=== PATIENT | female | born 1995 | race Caucasian/White ===

== ENCOUNTER → 2021-07-14 11:19 | Outpatient (CLI) | payer MEDICAID, SELFPAY | PROVIDERS: Visit Provider Obstetrics & Gynecology | DX: Z34.82 Encounter for supervision of other normal pregnancy, second trimester (principal) | CPT/HCPCS: 36415 ==

== ENCOUNTER 2021-07-22 23:40 | Emergency (ER) | payer MEDICAID, SELFPAY ==
[2021-07-22 23:40] VITALS: BP 109/67; PULSE 75; RESP 16; TEMP 36.7; O2SAT 97; BMI 19.8
--- NOTE | 2021-07-22 23:52 | EDS_ITS ---
HPI History of Present Illness Chief Complaint: Foreign Body Informant: patient Narrative Narrative: 26-year-old female presented to the emergency department out of concerns for a pill stuck in her throat. Patient states that she was attempting to take some vitamin B6 tablets. She states she typically will bite these into the threes and swallow because they are so large. She states that 1 of these feels like it is stuck in her throat just above her suprasternal notch. She has been able to swallow. Denies any voice changes. She states that she is and began to get quite anxious about going to sleep tonight pain afraid that she might choke. PFSH PFSH Home Medications PNV cmb#95-ferrous fumarate-FA [ Vitamin Tablet] 1 ea PO DAILY 05/03/16 [History Last Taken 05/02/16 21:00 1 tab] naproxen 250 - 500 mg PO Q8H PRN PRN #30 tablet 05/05/16 [Rx Last Taken Unknown] Allergy/AdvReac Type Severity Reaction Status Date / Time No Known Allergies Allergy Verified 07/22/21 23:43 Social History (Updated 07/22/21 @ 23:[address] Jared Fuentes, DO) current gender identity: female Smoking Status: Former smoker ROS ROS ED Constitutional Constitutional ED: Denies chills or weight loss Eyes Eyes: Denies change in vision or diplopia ENT ENT ED: Reports sore throat; Denies ear pain or rhinorrhea Cardiovascular Cardiovascular: Denies chest pain, orthopnea, palpitations or racing heartbeat Respiratory/Chest Respiratory/Chest: Denies cough, dyspnea or orthopnea Gastrointestinal Gastrointestinal: Denies abdominal pain, diarrhea, nausea or vomiting Genitourinary Genitourinary ED: Denies dysuria, hematuria or urinary frequency Musculoskeletal Musculoskeletal: Denies arthralgias or myalgias Integumentary Denies abscess or rash Neurologic Neurologic: Denies headache(s) or weakness Psychiatric Psychiatric: Denies anxiety, depression, suicidal ideation or suicidal thoughts Endocrine Endocrinology: Denies polydipsia, polyphagia or polyuria Allergic/Immunologic Allergic/Immunologic ED: Denies mouth swelling, tongue swelling or urticaria EXAM Physical Exam Const Vital Signs: 07/22/21 23:40 Temperature 98.1 F Temperature Source Temporal Pulse Rate 75 Respiratory Rate 16 Blood Pressure 109/67 Blood Pressure Mean 81 Pulse Ox 97 Oxygen Delivery Method Room Air Positive well nourished and well developed General Appearance ED: well developed HEENT Reports normocephalic, head/scalp atraumatic, TM's clear and moist mucous membranes HEENT Narrative: Normal oral pharyngeal exam. No drooling. Able to tolerate wa ter. Tympanic Membrane ED: Yes TM's clear Eyes PERRL and EOMs intact bilaterally Neck no lymphadenopathy, supple and no JVD Resp normal respiratory effort and clear to auscultation bilaterally Cardio regular rate, regular rhythm and no murmurs GI normal to inspection, nondistended, normoactive bowel sounds and non-tender Palpation: soft Back/Spine no CVA tenderness and normal ROM Extremity normal to inspection General Extremety ED: Negative for edema General Extremity: Negative for edema Neuro oriented x3 and CN's II-XII intact bilaterally Sensorium / Orientation: alert Motor Exam: strength 5/5 throughout Psych mental status grossly normal Mood & Affect: Negative for depressed or tearful Skin no rashes or lesions noted and no wounds MDM MDM MDM Narrative Medical decision making narrative: Patient received a GI cocktail. Most likely the patient has a abrasion from the pill fragments. If there is a pill stuck it should dissolve. Patient I think is safe for discharge. Follow-up with ENT if not improving return if worsening Discharge Plan Triage Chief Complaint: Foreign Body ED Provider: Jared Fuentes Dx/Rx/DC Orders Clinical Impression: Abrasion of throat Instructions: ED Pharyngeal Abrasion Prescriptions: No Action PNV cmb#95-ferrous fumarate-FA [] 1 EACH tablet 1 ea PO DAILY RF: 0 naproxen 250 MG tablet 250 - 500 mg PO Q8H PRN PRN (Reason: Mild Pain (1-310)) Qty: 30 RF: 0 Primary Care Provider: Care Physician,No Primary Referrals: Max Chacko MD [STAFF PHYSICIAN] - As Needed (if not improving ) Care Physician,No Primary [Primary Care Provider] - Disposition Disposition: Home, Self Care
[2021-07-23] MEDS: Mag Hydrox/Al Hydrox/Simeth 30 ML UDC PO (00:06)
== END 2021-07-23 00:12 | disposition home or self-care (01) ==
LOC: ED 07-23
PROVIDERS: Emergency Provider Emergency Medicine
DX: O9A.219 Injury, poisoning and certain other consequences of external causes complicating pregnancy, unspecified trimester (principal); S10.11XA Abrasion of throat, initial encounter; T17.298A Other foreign object in pharynx causing other injury, initial encounter; Z87.891 Personal history of nicotine dependence; Z3A.00 Weeks of gestation of pregnancy not specified
CPT/HCPCS: 99283

== ENCOUNTER 2021-09-29 09:37 | Outpatient (CLI) | payer MEDICAID, SELFPAY ==
[2021-09-29 10:00] LABS: Hematocrit 34.5 % (37-47); Hemoglobin 11.5 g/dL (12.0-15.0); Mean Corp Hgb Conc 33.3 g/dL (32-36); Mean Corpuscular Volume 90.1 fL (81-99); Mean Platelet Vol. 10.3 fl (6.2-12.0); Platelet Count 244 K/mm3 (150-450); RBC Distribution Width CV 12.7 % (11.6-14.6); RBC Distribution Width SD 41.8 fl (35.1-43.9); Red Blood Count 3.83 M/mm3 (4.2-5.4); White Blood Count 14.2 K/mm3 (4.4-11.0)
[2021-09-29 10:29] LABS: Glucose Challenge Gest 1H 50g 82 mg/dL (70-140)
== END 2021-09-29 23:59 | disposition home or self-care (01) ==
LOC: WOBLAB 09:39
PROVIDERS: Visit Provider Obstetrics & Gynecology
DX: Z34.82 Encounter for supervision of other normal pregnancy, second trimester (principal)
CPT/HCPCS: 36415; 82950; 85027

== ENCOUNTER → 2021-12-03 | Outpatient (CLI) | payer OTHER, MEDICAID, SELFPAY | END | disposition home or self-care (01) | LOC: LABSPEC 16:07 | PROVIDERS: Visit Provider Obstetrics & Gynecology | DX: Z36.85 Encounter for antenatal screening for Streptococcus B (principal) | CPT/HCPCS: 87081 ==

== ENCOUNTER 2021-12-08 08:16 | Outpatient (CLI) | payer OTHER, MEDICAID, SELFPAY ==
[2021-12-08 08:24] VITALS: BP 113/75; PULSE 54; TEMP 36.6; O2SAT 99
[2021-12-08 08:25] VITALS: PULSE 54; O2SAT 99
[2021-12-08 08:29] VITALS: BMI 25.0
--- NOTE | 2021-12-09 08:20 | OB.TRI.NOTE ---
HPI - General HPI Narrative REJI IRWIN, is a 26 F who presents at 37 weeks 2 days gestation with some contractions. Patient denies any leaking of fluid. PFSH PFSH Home Medications PNV cmb#95-ferrous fumarate-FA [ Vitamin Tablet] 1 ea PO DAILY 05/03/16 [History Last Taken 05/02/16 21:00 1 tab] Unisom (diphenhydramine) 50 mg PO/SL DAILY 12/08/21 [History Last Taken Unknown] docusate sodium [Stool Softener] 100 mg PO DAILY 12/08/21 [History Last Taken Unknown] Allergy/AdvReac Type Severity Reaction Status Date / Time No Known Allergies Allergy Verified 12/08/21 08:31 Social History (Updated 07/22/21 @ 23:[address] Jared Fuentes, DO) Smoking Status: Former smoker History Elective abortions Hx Para 0 Spontaneous abortions Hx # Term Pregnancies Ectopic pregnancies Hx # Pregnancies Multiple births # of living children NST FHR Rate Baby A NST Reactive:: Yes FHR Category:: Category I Assessment & Plan (1) False labor, antepartum: PLAN: 37-week 2-day gestation with some contractions. After monitoring for 1 to 2 hours no cervical change was noted. Patient is comfortable resting in bed. Reactive nonstress test. Discharge to home with routine labor instructions given.
== END 2021-12-08 10:08 | disposition home or self-care (01) ==
LOC: WPOUT 08:22 → WP 08:23
PROVIDERS: Referring Provider Obstetrics & Gynecology; Visit Provider Obstetrics & Gynecology
DX: O47.03 False labor before 37 completed weeks of gestation, third trimester (principal); Z87.891 Personal history of nicotine dependence; Z3A.37 37 weeks gestation of pregnancy
CPT/HCPCS: 59050; 99218; G0378

== ENCOUNTER 2021-12-12 11:25 | Outpatient (CLI) | payer MEDICAID, SELFPAY ==
[2021-12-12 11:44] VITALS: TEMP 37.2
[2021-12-12 11:45] VITALS: BP 102/56; PULSE 67; TEMP 37.2
[2021-12-12 11:50] VITALS: PULSE 97; O2SAT 98
[2021-12-12 11:52] VITALS: BMI 25.2
--- NOTE | 2021-12-12 20:08 | OB.TRI.HP_ITS ---
HPI - General HPI Narrative REJI IRWIN, is a 26 F who presents at 37+ weeks gestation with some contractions. Denies leaking of fluid. PFSH PFSH Home Medications PNV cmb#95-ferrous fumarate-FA [ Vitamin Tablet] 1 ea PO DAILY 05/03/16 [History Last Taken 12/11/21 20:00] Unisom (diphenhydramine) 50 mg PO/SL DAILY 12/08/21 [History Last Taken 12/11/21 20:00] docusate sodium [Stool Softener] 100 mg PO DAILY 12/08/21 [History Last Taken 0 12/11/21 20:00] Allergy/AdvReac Type Severity Reaction Status Date / Time No Known Allergies Allergy Verified 12/08/21 08:31 Social History (Updated 07/22/21 @ 23:[address] Jared Fuentes, DO) Smoking Status: Former smoker History Elective abortions Hx Para 0 Spontaneous abortions Hx # Term Pregnancies Ectopic pregnancies Hx # Pregnancies Multiple births # of living children NST FHR Rate Baby B Decelerations:: Prolonged NST Reactive:: Yes FHR Category:: Category I Assessment & Plan (1) False labor, antepartum: PLAN: 37+ week intrauterine with false labor. Reactive nonstress test. No change of cervix after monitoring for 1 to 2 hours. No evidence of rupture membranes. Will discharge to home with routine instructions.
== END 2021-12-12 14:01 | disposition home or self-care (01) ==
LOC: WPOUT 11:30 → WP 11:30
PROVIDERS: Referring Provider Obstetrics & Gynecology; Visit Provider Obstetrics & Gynecology
DX: O47.03 False labor before 37 completed weeks of gestation, third trimester (principal); Z87.891 Personal history of nicotine dependence; Z3A.37 37 weeks gestation of pregnancy
CPT/HCPCS: G0378 ×2; 59050 ×2; 59025; 99218

== ENCOUNTER 2021-12-13 22:56 | Inpatient (IN) | payer OTHER, MEDICAID, SELFPAY ==
[2021-12-13] VITALS (10 sets, daily range): BP systolic 121–132; BP diastolic 63–81; PULSE 57–83; TEMP 36.4; O2SAT 83–100; BMI 24.8
[2021-12-13] MEDS: Lactated Ringers 1,000 ML 200 ML IV (23:15)
[2021-12-13] MEDS: Lactated Ringers 500 ML 999 ML IV (23:15)
[2021-12-13] MEDS: Ondansetron 4 MG/2 ML Vial IV (23:24)
[2021-12-13 23:36] LABS: Absolute Lymphocyte Count 3.49 X10^3/uL (0.83-4.51); Absolute Neutrophil Count 9.9 X10^3/uL (2.0-7.7); Basophil# 0.07 X10^3/uL; Basophil% 0.5 % (0-1); Eosinophils% 0.7 % (0-5); Hematocrit 34.4 % (37-47); Hemoglobin 11.2 g/dL (12.0-15.0); Lymphocyte # 3.49 X10^3/ul (0.83-4.51); Lymphocyte % 23.1 % (19-41); Mean Corp Hgb Conc 32.6 g/dL (32-36); Mean Corpuscular Hgb 27.8 pg (27.0-32.0); Mean Corpuscular Volume 85.4 fL (81-99); Mean Platelet Vol. 10.9 fl (6.2-12.0); Monocyte# 1.19 X10^3/uL; Monocyte% 7.9 % (0-10); NRBC Flagged by Analyzer 0.3 % (0-5); Neutrophil # 9.91 X10^3/uL (2.7-7.7); Neutrophil % 65.4 % (47-70); Platelet Count 217 K/mm3 (150-450); RBC Distribution Width CV 13.2 % (11.6-14.6); RBC Distribution Width SD 41.1 fl (35.1-43.9); Red Blood Count 4.03 M/mm3 (4.2-5.4); White Blood Count 15.1 K/mm3 (4.4-11.0)
[2021-12-13 23:44] LABS: ROM Internal Control Test YES-OK TO RESULT pt. (Internal QC)
[2021-12-13 23:45] LABS: ROM Patient Test Negative (Negative)
[2021-12-14] VITALS (60 sets, daily range): BP systolic 89–121; BP diastolic 47–67; PULSE 48–244; RESP 16; TEMP 36.2–37; O2SAT 82–100
[2021-12-14] MEDS: fentaNYL-bupivacaine (epidural) 100 ML BAG EPIDURAL ×2 (00:05→04:16)
[2021-12-14] MEDS: Lactated Ringers 500 ML 999 ML IV (00:17)
[2021-12-14 00:40] LABS: Amphetamine Urine VISTA NEGATIVE (<1000 ng/mL); Barbiturate Urine VISTA NEGATIVE (< 200 ng/mL); Benzodiazepine Urine VISTA NEGATIVE (< 200 ng/mL); Cocaine Urine VISTA NEGATIVE (< 300 ng/mL); Ecstacy Urine VISTA NEGATIVE (< 500 ng/mL); Methadone Urine VISTA NEGATIVE (< 300 ng/mL); PCP Urine VISTA NEGATIVE (< 25 ng/mL); THC Urine VISTA POSITIVE (< 50 ng/mL); Vista UDS pH Range 6
[2021-12-14] MEDS: Lactated Ringers 1,000 ML 200 ML IV (04:16)
[2021-12-14] MEDS: Oxytocin 30 units/NS 500 ml 30 UNITS/500 ML IV.SOLN IV (05:39)
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
[2021-12-14] MEDS: Acetaminophen 500 MG Tablet PO (07:52)
--- NOTE | 2021-12-14 08:58 | PCM.PN.OB ---
Subjective Subjective No complaints. COmfortable with epidural. Objective Data Objective Data Vital Signs: Vital Signs Temp Pulse BP Pulse Ox 98.0 F 244 H 108/58 L 83 12/14/21 08:25 12/14/21 08:27 12/14/21 08:25 12/14/21 08:27 Weight: 63.73 kg Body Mass Index (BMI) 24.8 Intake & Output: Intake and Output for Last 24 Hours 12/12/21 12/13/21 12/14/21 23:59 23:59 23:59 Intake Total Balance Lab / Micro Data Result Diagrams: 12/13/21 23:10 Labs: Laboratory Results - last 24 hr 12/13/21 23:00: Vag Amniotic Fld Detect Negative 12/13/21 23:10: WBC 15.1 H, RBC 4.03 L, Hgb 11.2 L, Hct 34.4 L, MCV 85.4, MCH 27.8, MCHC 32.6, RDW Std Deviation 41.1, RDW Coeff of [place] 13.2, Plt Count 217, MPV 10.9, Immature Gran % (Auto) 2.400 H, Neut % (Auto) 65.4, Lymph % (Auto) 23.1, [place] % (Auto) 7.9, Eos % (Auto) 0.7, Baso % (Auto) 0.5, Absolute Neuts (auto) 9.9 H, Absolute Lymphs (auto) 3.49, Nucleated RBC % 0.3 12/13/21 23:10: Blood Type O POSITIVE, Antibody Screen NEGATIVE 12/14/21 00:15: Urine Opiates Screen NEGATIVE, Urine Methadone Screen NEGATIVE, Ur Barbiturates Screen NEGATIVE, Ur Phencyclidine Scrn NEGATIVE, Ur Amphetamines Screen NEGATIVE, MDMA (Ecstasy) Screen NEGATIVE, U Benzodiazepines Scrn NEGATIVE, Urine Cocaine Screen NEGATIVE, U Cannabinoids Screen POSITIVE H, Ur Drug Screen Comment Micro: Microbiology 12/13/21 23:25 Nasal Secretion SARS-CoV-2 Antigen (Rapid) - Final Physical Exam Narrative GEN - NAD, AAO x 3 FHR 130, moderate variability, + accelerations including with scalp stimulation, no decelerations TOCO 10/14 SVE FD/+2 station, OA, BBOW Assessment & Plan (1) 38 weeks gestation of : PLAN: Anticipate Cat I FHR
[2021-12-14] MEDS: Oxytocin 30 units/NS 500 ml 30 UNITS/500 ML IV.SOLN 334 UNITS IV (09:38)
--- NOTE | 2021-12-14 09:48 | EX.PCM.OBRPT ---
Assessment & Plan (1) 38 weeks gestation of : (2) (spontaneous vaginal delivery): Maternal Data Information KARIN Calculator Estimated Delivery Date Method Current WG Current Estimate 12/27/21 Manual 38w 1d Vaginal Delivery Maternal Presentation Maternal Presentation: Active Labor Maternal Presentation: Pitocin augmentation Operative Information Date of Procedure: 12/14/21 Pre-Operative Diagnosis: 1. 38 weeks 1 day gestation 2. Labor Post-Operative Diagnosis: 1. 38 weeks 1 day gestation 2. Labor Surgery / Procedure Performed: Spontaneous Vaginal Delivery Type of Anesthesia: Epidural Estimated Blood Loss: 200 ml Time of Delivery: 09:33 Findings Description of Procedure: Patient was fully dilated and +4 station on my arrival. She pushed to deliver a female infant in OA. The was placed on maternal abdomen and further attended by nursery personnel. The cord was doubly clamped and cut at approximately 3 minutes of life. Cord blood was obtained the placenta delivered spontaneously and appeared intact on inspection. The fundus was firm. A first-degree perineal laceration was repaired using 3-0 Vicryl repeat with good hemostasis. Sponge counts were correct x2. Presentation: Vertex Amniotic Membrane Rupture Type: Artificial Amniotic Fluid Description: Clear Placental Delivery Description: Spontaneous Placenta Disposition: [facility] Cord Vessel Description: 3 Vessels Cord Entanglement: None A Gender: Female (1 minute): 8 (5 minute): 9 Delayed Cord Clamping: Yes Post Vaginal Delivery Medications Given After Delivery: IV Pitocin Episiotomy Description: None Laceration: Midline and 1st degree Complication Complications: None
[2021-12-14] MEDS: 0.9% Saline Lock 10 ML Syringe IV (12:25)
[2021-12-14] MEDS: Ibuprofen 600 MG Tablet PO ×2 (12:26→20:31)
[2021-12-14] MEDS: Senna/Docusate Sodium 1 Tablet PO (12:26)
[2021-12-14] MEDS: Benzocaine/Lanolin/Aloe Vera 1 SPRAY EACH TOPICAL (15:54)
[2021-12-14] MEDS: Acetaminophen 500 MG Tablet 1000 MG PO (21:50)
[2021-12-15 00:40] VITALS: BP 108/72; PULSE 80; RESP 16; TEMP 36.6; O2SAT 98
[2021-12-15] MEDS: Acetaminophen 500 MG Tablet 1000 MG PO ×2 (04:43→11:05)
[2021-12-15] MEDS: Ibuprofen 600 MG Tablet PO (04:43)
[2021-12-15 04:45] VITALS: BP 116/68; PULSE 68; RESP 16; TEMP 36.9; O2SAT 97
[2021-12-15 08:27] VITALS: BP 113/58; PULSE 53; RESP 14; TEMP 36.2
[2021-12-15 08:28] VITALS: BP 113/58; PULSE 53
--- NOTE | 2021-12-15 09:01 | PCM.PN.OB ---
Subjective Subjective She is sore this morning. Had a bowel movement. No issues voiding, denies heavy lochia. She is . Feels well and requests discharge to home. Objective Data Objective Data Vital Signs: Vital Signs Temp Pulse Resp BP Pulse Ox 97.1 F L 53 L 14 113/58 L 97 12/15/21 08:27 12/15/21 08:28 12/15/21 08:27 12/15/21 08:28 12/15/21 04:45 Oxygen Delivery Method Room Air Weight: 63.73 kg Body Mass Index (BMI) 24.8 Intake & Output: Intake and Output for Last 24 Hours 12/13/21 12/14/21 12/15/21 23:59 23:59 23:59 Intake Total 4014.56 / 4014.56 Output Total 1850 / 1850 Balance 2164.56 / 2164.56 Lab / Micro Data Result Diagrams: 12/13/21 23:10 Micro: Microbiology 12/13/21 23:25 Nasal Secretion SARS-CoV-2 Antigen (Rapid) - Final Physical Exam Const alert, oriented x3 and no apparent distress Resp normal respiratory effort and normal air movement Cardio regular rate, regular rhythm, S1 normal heart sound and S2 normal heart sound Uterus Palpation: uterus fundus firm and other OB fundus nontender Extremity no calf tenderness Neuro oriented x3 Assessment & Plan (1) (spontaneous vaginal delivery): PLAN: Rh positive d/c home today
--- NOTE | 2021-12-15 09:03 | PCM.DC ---
Discharge Instructions Diet Discharge Diet: No restrictions Activity Discharge Activity: Return to Normal Activity May resume sexual activity in: 6 weeks Lifting Restrictions: 20lb Dressing / Incision Call your doctor if you observe: Fever of 101 or Higher, Using more than 1 pad per hour, Shortness of breath, Chest pain, Calf discomfort, Uncontrolled pain and - (Persistent or severe headache) Follow Up Care Please Follow Up With: Ines Pittman MD When: 3 weeks for telehealth follow up 6 weeks for visit Test Results: Test results from this visit will be discussed in further detail at your follow-up appointment, if applicable. Discharge Plan Admission Admit Date/Time: 12/13/21 22:56 Primary Reason for Your Visit: Vaginal delivery Attending Provider: Ines Cates Primary Care Provider: Care Physician,Terri Primary Discharge Orders/Prescriptions Prescriptions: New ibuprofen 600 mg Tablet 600 mg PO Q8H PRN PRN (Reason: Pain Score 1-3) Qty: 30 RF: 0 Continued PNV cmb#95-ferrous fumarate-FA [] 1 EACH tablet 1 ea PO DAILY RF: 0 Changed docusate sodium [Stool Softener] 100 mg Tablet 100 mg PO BID Qty: 0 RF: 0 Discontinued Unisom (diphenhydramine) 50 mg PO/SL DAILY RF: 0 Referrals / Follow Up: Care Physician,Terri Primary [Primary Care Provider] - Disposition Disposition (needs filled in before D/C Order can be placed): Home, Self Care
[2021-12-15 13:01] VITALS: BP 110/58; PULSE 53; RESP 12; TEMP 36.4
[2021-12-15 13:03] VITALS: BP 110/58; PULSE 53
== END 2021-12-15 13:20 | disposition home or self-care (01) | DRG 560 ==
LOC: WPOUT 22:59 → WP 12-14 06:13 → WPOUT 12-14 09:48
PROVIDERS: Obstetrics & Gynecology; Admitting Provider Obstetrics & Gynecology; Visit Provider Obstetrics & Gynecology
DX: O70.0 First degree perineal laceration during delivery (principal); Z37.0 Single live birth; F17.200 Nicotine dependence, unspecified, uncomplicated; Z3A.38 38 weeks gestation of pregnancy; O99.334 Smoking (tobacco) complicating childbirth
CPT/HCPCS: 59025; 59050; 80307; 84112; 85025; 86850; 86900; 86901; 87426; 99218; 99406; J7120; A4216; G0378; J2405

== ENCOUNTER 2023-09-16 10:26 | Emergency (ER) | payer OTHER, MEDICAID, SELFPAY ==
[2023-09-16 10:27] VITALS: BP 105/69; PULSE 61; RESP 16; TEMP 36.7; O2SAT 97; BMI 19.5
--- NOTE | 2023-09-16 11:11 | ED.VIS.FEGU ---
HPI HPI - Female History of Present Illness Chief Complaint: Vag Bld, Preg Detail of Chief Complaint: First trimester with bleeding this morning. Also constipation. Informant: patient and parent Pain Pain: Positive for Pelvic Pain Quality: Positive for Cramping Current Severity: Mild Maximum Severity: Mild Bleeding Issue: Positive for Vaginal bleeding; Negative for Passing clots or Passing tissue Onset: Today Associated Symptoms Associated Symptoms: Negative for Dysuria, Frequency, Urgency or Hematuria Test: Positive Sexually: Positive for Active P: 2 Ab: 0 Narrative Narrative: 28-year-old female no significant past medical history. Currently believes she is around 4 weeks . Has had no care as of yet. Has been follow-up with [facility] in the next several weeks. She is Ab0. This morning had vaginal bleeding and some cramping. No clots. No dysuria. No fever. No prior miscarriages nor ectopic. Both prior deliveries were vaginal deliveries. Prior similar symptoms: No Recent Illness/Hospitalization: No PFSH PFSH Medical History Anxiety Family history of hearing loss at age younger than 7 years Trauma Home Medications vit no.95-ferrous fumarate 28 mg-folic acid 800 mcg tablet () 1 ea PO DAILY 05/03/16 [History Last Taken 12/13/21] docusate sodium 100 mg tablet (Stool Softener) 100 mg PO BID constipation #0 tabs 12/15/21 [Rx Last Taken 12/13/21] ibuprofen 600 mg tablet 600 mg PO Q8H PRN PRN Pain Score 1-3 #30 tabs 12/15/21 [Rx Last Taken Unknown] Allergy/AdvReac Type Severity Reaction Status Date / Time No Known Allergies Allergy Verified 12/28/21 09:56 Social History Smoking Status: Former smoker ROS ROS ED ROS Narrative Denies recent illness. Constipated last 3 to 4 days. Review of Systems ROS Unobtainable: Denies due to encephalopathy Constitutional Constitutional ED: Denies chills or fever(s) Eyes Eyes: Denies blurry vision ENT ENT ED: Denies ear pain Cardiovascular Cardiovascular: Denies chest pain Respiratory/Chest Respiratory/Chest: Denies cough or dyspnea Gastrointestinal Gastrointestinal: Reports constipation; Denies abdominal pain, diarrhea, melena, nausea or vomiting Genitourinary Genitourinary ED: Denies dysuria, hematuria or urinary frequency Musculoskeletal Musculoskeletal: Denies arthralgias, myalgias or neck pain Integumentary Denies abscess or Abrasions Neurologic Neurologic: Denies headache(s) Psychiatric Psychiatric: Denies anxiety or depression Endocrine Endocrinology: Denies heat intolerance Hematologic/Lymphatic Hematologic/Lymphatic: Denies easy bleeding or easy bruising Allergic/Immunologic Allergic/Immunologic ED: Denies mouth swelling, tongue swelling or urticaria EXAM Physical Exam Narrative Exam Narrative: Well-appearing 28-year-old female. Vital signs stable afebrile. HEENT exam unremarkable. Lungs clear to auscultation. Heart regular rhythm rate about 60 no murmur. Abdomen soft nondistended normal bowel sounds no peritoneal signs. No significant tenderness. No distention. Right upper right lower quadrant unremarkable. No hernia or mass. No obstruction. Moving all 4 extremities. Back nontender. Neurologically she is awake and alert. Benign exam. Const Vital Signs: 09/16/23 10:27 Temperature 98.0 F Temperature Source Temporal Pulse Rate 61 Respiratory Rate 16 Blood Pressure 105/69 Blood Pressure Mean 81 Pulse Ox 97 Oxygen Delivery Method Room Air Positive well nourished and well developed; Negative for obese, cachectic, contractures or unkempt General Appearance ED: well developed and NAD; Negative for unkempt, cachectic, contractures, odor of alcohol detected or pallor Nutritional Appearance: Negative for cachectic or obese HEENT Reports moist mucous membranes; Denies dry mucous membranes Negative for trauma or tenderness Mouth ED: No dry mucous membranes Mouth: No dry mucous membranes Eyes PERRL and EOMs intact bilaterally General Eye ED: Negative for pale conjunctiva or scleral icterus Neck no lymphadenopathy, supple and no JVD General: Negative for other Thyroid: Negative for tender Lymph Lymphatic: Negative for other Chest Wall inspection of chest normal and palpation of chest normal Chest: Negative for other Resp normal respiratory effort and clear to auscultation bilaterally Effort and Inspection: Negative for pain with movement Auscultation: Negative for rales, rhonchi or wheezes Cardio regular rate, regular rhythm, S1 normal heart sound, no murmurs and no JVD Rate: Negative for bradycardia, tachycardic or other Rhythm: Negative for abnormal rhythm GI normal to inspection, nondistended, normoactive bowel sounds, soft to palpation, non-tender, non-distended and no masses Auscultation: normoactive bowel sounds Palpation: Negative for tender, guarding or rigid Back/Spine no CVA tenderness General Back: Negative for CVA tenderness Cervical Spine: Negative for cervical spine tenderness Thoracic Spine / Upper Back: Negative for thoracic spinal tenderness Lumbar Spine / Lower Back: Negative for lumbar spinal tenderness Sacrum: Negative for other Extremity normal to inspection and full ROM General Extremety ED: Negative for edema, tenderness or other findings General Extremity: Negative for edema or other findings Neuro oriented x3, CN's II-XII intact bilaterally and no sensory deficits noted Sensorium / Orientation: alert, oriented to person, oriented to place and oriented to time; Negative for confused, lethargic or stuporous Psych mental status grossly normal Appearance: Negative for unkempt Attitude: No agitated Speech: No other Mood & Affect: Negative for depressed or tearful Skin no rashes or lesions noted and no wounds General Skin Exam: Negative for jaundice or pallor Rashes: No rashes noted Trauma: Negative for other MDM MDM MDM Narrative Medical decision making narrative: 28-year-old female G3, P2 AB 0. Currently about 4 weeks . Has upcoming appointment has had no care as of yet for this . Started having vaginal bleeding today. She is also complaining of several day history of constipation which she had with her last also. [facility] labs are pending along with a urinalysis and an ultrasound. Repeat exam patient doing well at 1:15 pm. Discussed all of her test alts. Concern for threatened miscarriage. Outpatient OB follow-up. History & Record Review Discussion w/independent historian: Patient and Family Additional record(s) reviewed:: Prior inpatient record, Prior outpatient record, Prior ED visit and Prior labs Lab Data Attestation: I reviewed the patient's lab results. Lab results narrative: UA negative. Quantitative hCG is 6,171. Urinalysis normal. blood type O +. Ultrasound with single live IUP 5 weeks and 6 days. Subchorionic bleed. Bradycardic heart rate of 56. Labs: Laboratory Results - last 24 hr 09/16/23 11:22 HCG, Quant 6171 H Urine Color Yellow Urine Clarity Clear Urine pH 7.0 Ur Specific [place] 1.010 Urine Protein Negative Urine Glucose (UA) Normal Urine Ketones 5 H Urine Occult Blood 50 H Urine Nitrite Negative Urine Bilirubin Negative Urine Urobilinogen Normal Ur Leukocyte Esterase Negative Urine RBC 0 SEEN Urine WBC 0 SEEN Ur Squamous Epith Cells 0 SEEN Urine Bacteria 0 SEEN Urine Mucus 0 SEEN Radiography Diagnostic Testing: Clinical Impression(s) from Imaging Studies Obstetrics Ultrasound 09/16/23 11:14 IMPRESSION: 1. Single live intrauterine . Estimated gestational age is 5 weeks and 6 days. The KARIN is 05/12/2024. 2. Bradycardia. cardiac activity is 56 bpm. 3. Subchorionic hemorrhage. 4. Follow-up examination is recommended. Electronically Signed: Quinten Perez MD at 12:31 EST , Discharge Plan Triage Chief Complaint: Vag Bld, Preg ED Provider: Demetrius Richard Dx/Rx/DC Orders Clinical Impression: Threatened miscarriage, First trimester , Abnormal vaginal bleeding Instructions: Miscarriage Threatened Prescriptions: No Action PNV cmb#95-ferrous fumarate-FA [] 1 EACH tablet 1 ea PO DAILY ibuprofen 600 mg Tablet 600 mg PO Q8H PRN PRN (Reason: Pain Score 1-3) Qty: 30 0RF docusate sodium [Stool Softener] 100 mg Tablet 100 mg PO BID Qty: 0 0RF Primary Care Provider: Care Physician,No Primary Referrals: Clarita Freedman DO [Med Staff - Active Staff] - As soon as possible Care Physician,No Primary [Primary Care Provider] - Activity Restrictions/Additional Instructions: Patient pelvic rest. No heavy lifting. No intercourse. Tylenol for pain. Plenty of fluids. Follow-up with your [facility]. Call them tomorrow they may get you in sooner or they can see you on the with your scheduled appointment. Return if a lot heavier bleeding or passing large clots or you are feeling a lot worse. You may have additional bleeding. Disposition Disposition: Home, Self Care
--- NOTE | 2023-09-16 11:14 | US_ITS ---
INDICATION: 1st trimester bleeding EXAMINATION: Ultrasound US OB Transvaginal TECHNIQUE: Transvaginal (for optimal evaluation of the adnexa) pelvic ultrasound was performed. Grayscale, spectral waveform, and color flow Doppler evaluation of the adnexa. COMPARISON: No relevant prior comparison study available LMP: [08/14/2023. Beta-hCG: Unknown FINDINGS: UTERUS: 10 x 10.8 x 5.1 cm. No focal lesion is seen. RIGHT OVARY: The right ovary measures 3.4 x 2.4 x 2 cm. Normal. LEFT OVARY: The left ovary measures 3.5 x 3.2 x 2.1 cm. There is a small cyst/prominent follicle measuring about 2 cm. FREE FLUID: Minimal amount of free fluid seen with internal echoes. INTRAUTERINE GESTATIONAL SAC(s) (size/shape): Single. The gestational sac measures 1.1 cm in mean sac diameter which corresponds approximately 5 weeks and 6 days. YOLK SAC: Identified measuring 2 mm. POLE: Identified CRL 2 mm. ESTIMATED GESTATION AGE: 5 weeks and 6 days. HEART MOTION: 56 bpm. PLACENTA: Not visualized due to age. SUBCHORIONIC HEMORRHAGE: Heterogeneous area consistent with subarachnoid hemorrhage measuring about 3.8 cm. AMNIOTIC FLUID: Qualitatively normal. US/Transvaginal w/Preg US IMPRESSION: 1. Single live intrauterine . Estimated gestational age is 5 weeks and 6 days. The KARIN is 05/12/2024. 2. Bradycardia. cardiac activity is 56 bpm. 3. Subchorionic hemorrhage. 4. Follow-up examination is recommended. Electronically Signed: Quinten Perez MD at 12:31 EST ,
--- OUTSIDE RECORDS SUMMARY | 2023-09-16 11:21 | XMS RPT_ITS | CCD ---
Author Name Unknown Address [address] [place] [address] Organization [facility] Care Team Providers Care Operator Receptionist Name Role Phone Unavailable Primary Care Provider UnavailCLOTILDE Abbott Referring Unavailable CLOTILDE MENDOZA Attending Unavailable Medications Current Medications Medication Drug Class(es) Dates Sig (Normalized) Sig (Original) amoxicillin 875 mg / clavulanate 125 mg oral tablet (2 sources) Penicillin-class Antibacterial Start: 09-07-2022 End: 09-14-2022 take 1 tablet by mouth twice daily amoxicillin-clavu lanic acid (AUGMENTIN) 875-125 mg per tablet Indications: Acute non-recurrent sinusitis, unspecified location Take 1 tablet by mouth twice daily for 7 days. 14 tablet 0 09/07/2022 09/14/2022 Active Completed/Discontinued Medications Medication Drug Class(es) Dates Sig (Normalized) Sig (Original) fluconazole 150 mg oral tablet (1 source) Azole Antifungal Start: 06-05-2023 End: 06-05-2023 take 1 tablet by mouth once fluconazole (DIFLUCAN) 150 mg tablet Take 1 tablet by mouth one time only for 1 dose. 1 tablet 0 06/05/2023 06/05/2023 Problems Problem Classification Problem Date Documented Date Episodic/Chronic Immunizations and screening for infectious disease (2 sources) Patient encounter status; Translations: [Encounter for screening for human papillomavirus (HPV)] 05-31-2023 Episodic Menstrual disorders (6 sources) Menorrhagia; Translations: [Excessive and frequent menstruation with regular cycle] Onset: 06-05-2023 05-31-2023 Chronic Other female genital disorders (2 sources) Premenstrual tension syndrome; Translations: [Premenstrual tension syndrome] 05-31-2023 Chronic Other female genital disorders (1 source) Premenstrual tension syndrome; Translations: [PMS (premenstrual syndrome)] Onset: 06-05-2023 Chronic Other female genital disorders (1 source) Vaginal discharge; Translations: [Other specified noninflammatory disorders of vagina] 05-31-2023 Episodic Other screening for suspected conditions (not mental disorders or infectious disease) (1 source) Cancer cervix screening status; Translations: [Encounter for screening for malignant neoplasm of cervix] 05-31-2023 Episodic Other upper respiratory infections (1 source) Acute sinusitis; Translations: [Acute sinusitis, unspecified] Episodic Otitis media and related conditions (1 source) Acute left otitis media; Translations: [Otitis media, unspecified, left ear] Episodic Results Test Name Value Interpretation Reference Range Facil ity Vital Signs Date Time Vital Sign Value Performing Clinician Faci litrj 05-31-2023 14:11-0400 Body height 160 cm Clotilde Mendoza APRN.CNM Work Phone: [facility] 05-31-2023 14:11-0400 Body weight 48.72 kg Clotilde Mendoza APRN.CNM Work Phone: [facility] 05-31-2023 14:11-0400 Diastolic blood pressure 60 mm[Hg] Clotilde Mendoza APRN.CNM Work Phone: [facility] 05-31-2023 14:11-0400 Systolic blood pressure 92 mm[Hg] Clotilde Mendoza APRN.CNM Work Phone: [facility] 09-07-2022 08:41-0500 Body temperature 98.71 [degF] Max Wise MD Work Phone: [facility] 09-07-2022 08:41-0500 Body weight 48.53 kg Max Wise MD Work Phone: [facility] 09-07-2022 08:41-0500 Diastolic blood pressure 60 mm[Hg] Max Wise MD Work Phone: [facility] 09-07-2022 08:41-0500 Heart rate 98 /min Max Wise MD Work Phone: [facility] 09-07-2022 08:41-0500 Respiratory rate 16 /min Max Wise MD Work Phone: [facility] 09-07-2022 08:41-0500 SaO2% (BldA) [Mass fraction] 98 % Max Wise MD Work Phone: [facility] 09-07-2022 08:41-0500 Systolic blood pressure 102 mm[Hg] Max Wise MD Work Phone: [facility] Encounters Encounter Date Encounter Type Care Provider Facility Start: 06-05-2023 End: 06[facility]05[facility]20[facility] Start: 06-05-2023 End: 06-05-2023 Subsequent hospital visit by physician [facility] Work Phone: Radiology Procedures Date Procedure Procedure Detail Performing Clinician Start: 06-05-2023 Us transvaginal Clotilde Mendoza RADIATOR CLEANER.CNM Work Phone: Start: 05-31-2023 BACTERIAL VAGINOSIS NAAT Clotilde Gerard RADIATOR CLEANER.CNM Work Phone: Start: 05-31-2023 Iadna trichomonas vaginalis amplified probe tech Clotildecasey Mendoza RADIATOR CLEANER.CNM Work Phone: Plan of Treatment Date Care Activity Detail Author Start: 03-24-2026 Urine microalbumin profile [facility] Start: 05-31-2023 End: 08-30-2023 CBC W Auto Differential panel - Blood CBC + DIFF Lab Routine Menorrhagia with regular cycle Dysmenorrhea PMS (premenstrual syndrome) Expected: 05/31/2023, Expires: 08/30/2023 [facility] Work Phone: Immunizations Immunization Date Immunization Notes Care Provider Fa [facility] 04-29-2020 Human Papillomavirus 9-valent vaccine Max Wise MD Work Phone: [facility] 02-25-2019 Human Papillomavirus 9-valent vaccine Max Wise MD Work Phone: [facility] 12-26-2018 Human Papillomavirus 9-valent vaccine Max Wise MD Work Phone: [facility] Work Phone: 04-29-2016 influenza, injectabl e, quadrivalent, contains preservative Max Wise MD Work Phone: [facility] Work Phone: 04-29-2016 influenza virus vacc ine, unspecified formulation Clotildecasey Mendoza APRN.CNM Work Phone: [facility] 03-24-2016 tetanus toxoid, redu liliana diphtheria toxoid, and acellular pertussis vaccine, adsorbed Max Wise MD Work Phone: [facility] Work Phone: Payers Date Payer Category Payer Unknown [id number] 2021 Unknown [id number] Social History Date Type Detail Facility Start: [facility]-07-[facility] Work Phone: History of tobacco use Cigarette Smoker C [facility] Work Phone: Start: 09-07-2022 End: 05-31-2023 Cigarettes smoked current (pack per day) - Reported 0.5 [facility] Start: 09-07-2022 Tobacco use and exposure Smoke less tobacco non-user [facility] Work Phone: Start: 09-07-2022 End: 05-31-2023 Alcohol intake Lifetime non-drinker (finding) [facility] Start: 04-15-2020 History SDOH Alcohol Frequency 1 [facility] Start: 04-15-2020 History SDOH Social Connections Phone 5 [facility] Start: 04-15-2020 History SDOH Social Connections Get Together 4 [facility] Start: 04-15-2020 History SDOH Social Connections Membership 2 [facility] Start: 04-15-2020 History SDOH Social Connections Living 8 [facility] Start: 04-15-2020 History SDOH Physica l Activity DPW 7 [facility] Start: 04-15-2020 History SDOH Physica l Activity MPS 15 [facility] Start: 04-15-2020 History SDOH Stress 3 [facility] Start: 1995 Sex Assigned At Not on file C [facility] Start: 04-15-2020 End: 05-31-2023 Social connection and isolation panel [facility] Do you belong to any clubs or organizations such as hinduism groups, unions, fraternal or athletic groups, or school groups? No [facility] Are you now , , , , never or living with a partner? Living with partner [facility] How often to you hav e a drink containing alcohol? Never [facility] Average Number of Drinks Not on file [facility] Do you feel stress - tense, restless, nervous, or anxious, or unable to sleep at night because your mind is troubled all the time - these days [OSQ] To some extent [facility] (I/We) worried wheth er (my/our) food would run out before (I/we) got money to buy more. Never true [facility] Clinical Notes 03-24-2016 to 06-05-2023 Clotilde Harvey RDMS - 06/05/2023 8:30 AM EDTPatient Clotilde Jennings APRN.CNM - 05/31/2023 2:01 PM EDTTelephone Encounter - Elizabeth Cano LPN - 03/10/2023 7:56 AM EDT Note Date & Type Note Facility 06-05-2023 Note HNO ID: [id number] Author: Clotilde Harvey RDMS Service: ? Author Type: [employer] Supervisor Type: Progress Notes Filed: 06/05/2023 10:51 AM Note Text: Radiology Service Progress Note PATIENT NAME: Jeannie Johnston DATE OF SERVICE: June 05, 2023 TIME: 10:51 AM PATIENT IDENTITY VERIFICATION COMPLETED USING TWO (2) IDENTIFIERS: Name and Date of confirmed by patient verbally. FALL SCREENING: Has the patient had 2 falls in the last year or 1 fall with injury or currently using an Ambulatory Assistive Device (Walker, Cane, Wheelchair, Crutches, etc.)? No PATIENT GENDER DATA: Female. status: : No status: NO. PATIENT RELEVANT IMPLANT DATA REVIEWED: Not Applicable RADIOLOGY DEPARTMENT: Ultrasound PERIPHERAL IV DATA: Not applicable SIGNED BY: Clotilde Harvey RDMS RVT June 05, 2023 10:51 AM [facility] 06-05-2023 History of Presen t illness Narrative Radiology Service Progress Note PATIENT NAME: Jeannie Johnston DATE OF SERVICE: June 05, 2023 TIME: 10:51 AM PATIENT IDENTITY VERIFICATION COMPLETED USING TWO (2) IDENTIFIERS: Name and Date of confirmed by patient verbally. FALL SCREENING: Has the patient had 2 falls in the last year or 1 fall with injury or currently using an Ambulatory Assistive Device (Walker, Cane, Wheelchair, Crutches, etc.)? No PATIENT GENDER DATA: Female. status: : No status: NO. PATIENT RELEVANT IMPLANT DATA REVIEWED: Not Applicable RADIOLOGY DEPARTMENT: Ultrasound PERIPHERAL IV DATA: Not applicable SIGNED BY: Clotilde Harvey RDMS RVT June 05, 2023 10:51 AM documented in this encounter [facility] 05-31-2023 Note HNO ID: [id number] Author: Clotilde Mendoza APRN.CNM Service: ? Author Type: Metal Drawer Type: Progress Notes Filed: 06/04/2023 7:15 PM Note Text: Jeannie is a 28 year old who presents for an annual gynecologic exam with complaints, heavy bleeding and dysmenorrhea. Menses: cycles every 30 days and 7 days of flow. Daughter 1.5 years old. Prior to this was on control for 6 years. Pill, nuvaring, patch were used. After daughter heavy menses. Soaking through super tampon 2hrs. Increased pressure in rectum, shooting pain. 1 week before menses, cramping, bloated, nauseated. Pain rated 8/10 at times, takes tyelnol helps at times. Pain becomes more mild but not as bad before menses. Denies pain at any other time of the month. Contraception: nothing at this time, does not desire . 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 Diet: Regular, no restrictions Seatbelt use: Yes OB History T1 L1 SAB0 IAB0 Ectopic0 Multiple0 Live Births1 Saw Man History LMP: 05/03/2023, Having periods Age at Menarche: Age at First : Age at Menopause: Saw Man History Comments: Sexual Activity: Yes; Male Contraception: No contraception data on record PAST MEDICAL HISTORY Diagnosis Date NEGATIVE MEDICAL HISTORY PAST SURGICAL HISTORY Procedure Laterality Date NONE FAMILY HISTORY Problem Relation Age of Onset Bipolar disorder Mother No Known Problems Brother No Known Problems Brother None Other SOCIAL HISTORY Social History Tobacco Use Smoking status: Every Day Packs/day: 0.50 Years: 8.00 Additional pack years: 0.00 Total pack years: 4.00 Types: Cigarettes Smokeless tobacco: Never Vaping Use Vaping Use: Never used Substance Use Topics Alcohol use: Never 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 No bloating, early satiety, indigestion, or increased flatulence. Bladder: No dysuria, gross hematuria, urinary frequency, urinary urgency, or incontinence. Breast: No breast lumps, nipple d/c, overlying skin changes, redness or skin retraction. Allergies and current medication updated:Yes EXAM: BP 92/60 Ht 5' 3 (1.60m) Wt 107 lb 6.4 oz (48.7kg) LMP 05/03/2023 BMI 19.03 kg/(m2). GENERAL: pleasant, female in no apparent distress HEENT: Normocephalic, atraumatic, mucus membranes moist, and no lesions NECK: Supple, full range of motion, no adenopathy, and thyroid normal DERMATOLOGY: Normal, without lesions, non-icteric, and non-hirsute BREAST: soft, non-tender, symmetric, no dominant mass, normal nipple-areolar complex, no lymphadenopathy, and no nipple discharge CHEST: Clear to auscultation, Normal inspiratory effort, and Regular rate and rhythm ABDOMEN: soft, non-tender, and no masses PELVIC: external genitalia normal, normal Bartholin's glands, urethra, Raynesford's glands, no vulvar lesions, no cervical lesions, good vaginal support, physiologic discharge present, normal appearing perineal body and perianal region BIMANUAL: uterus normal size, shape and consistency, no adnexal masses, and non-tender RECTOVAGINAL: deferred. NEURO: alert and oriented x3,exam grossly non-focal EXTREMITIES: normal ASSESSMENT/PLAN: 1. Encounter for gynecological examination (general) (routine) with abnormal findings - ICD9: V72.31, ICD10: Z01.411 (primary diagnosis) - Completed pelvic and breast exam - Encouraged monthly BSE - Follow up for annual exam in one year. - PAP TEST 2. Screening for cervical cancer - ICD9: V76.2, ICD10: Z12.4 - Completed pelvic and breast exam - Encouraged monthly BSE - Follow up for annual exam in one year. - PAP TEST 3. Encounter for screening for human papillomavirus (HPV) - ICD9: V73.81, ICD10: Z11.51 - PAP TEST 4. Screen for STD (sexually transmitted disease) - ICD9: V74.5, ICD10: Z11.3 5. Menorrhagia with regular cycle - ICD9: 626.2, ICD10: N92.0 - TSH BLD - PROLACTIN BLD - US FEMALE PELVIS TRANSVAG - CBC + DIFF 6. Dysmenorrhea - ICD9: 625.3, ICD10: N94.6 - TSH BLD - PROLACTIN BLD - US FEMALE PELVIS TRANSVAG - CBC + DIFF 7. PMS (premenstrual syndrome) - ICD9: 625.4, ICD10: N94.3 - TSH BLD - PROLACTIN BLD - US FEMALE PELVIS TRANSVAG - CBC + DIFF 1) Health maintenance: Pap done with reflex HPV. Nutrition, exercise and routine health maintenance exams reviewed. Calcium/Vitamin D supplementation information provided. HPV vaccine: c (more content not included)... [facility] 05-31-2023 Instructions Clotilde Mendoza APRN.CNM - 05/31/2023 2:55 PM EDT 600mg Ibuprofen by mouth every 6 hours at first sign of pain prior to menses. Take until menses starts. documented in this encounter [facility] 05-31-2023 History of Presen t illness Narrative Jeannie is a 28 year old who presents for an annual gynecologic exam with complaints, heavy bleeding and dysmenorrhea. Menses: cycles every 30 days and 7 days of flow. Daughter 1.5 years old. Prior to this was on control for 6 years. Pill, nuvaring, patch were used. After daughter heavy menses. Soaking through super tampon 2hrs. Increased pressure in rectum, shooting pain. 1 week before menses, cramping, bloated, nauseated. Pain rated 8/10 at times, takes tyelnol helps at times. Pain becomes more mild but not as bad before menses. Denies pain at any other time of the month. Contraception: nothing at this time, does not desire . 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 Diet: Regular, no restrictions Seatbelt use: Yes OB History T1 L1 SAB0 IAB0 Ectopic0 Multiple0 Live Births1 Saw Man History LMP: 05/03/2023, Having periods Age at Menarche: Age at First : Age at Menopause: Saw Man History Comments: Sexual Activity: Yes; Male Contraception: No contraception data on record PAST MEDICAL HISTORY Diagnosis Date NEGATIVE MEDICAL HISTORY PAST SURGICAL HISTORY Procedure Laterality Date NONE FAMILY HISTORY Problem Relation Age of Onset Bipolar disorder Mother No Known Problems Brother No Known Problems Brother None Other SOCIAL HISTORY Social History Tobacco Use Smoking status: Every Day Packs/day: 0.50 Years: 8.00 Additional pack years: 0.00 Total pack years: 4.00 Types: Cigarettes Smokeless tobacco: Never Vaping Use Vaping Use: Never used Substance Use Topics Alcohol use: Never 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 No bloating, early satiety, indigestion, or increased flatulence. Bladder: No dysuria, gross hematuria, urinary frequency, urinary urgency, or incontinence. Breast: No breast lumps, nipple d/c, overlying skin changes, redness or skin retraction. Allergies and current medication updated:Yes EXAM: BP 92/60 Ht 5' 3 (1.60m) Wt 107 lb 6.4 oz (48.7kg) LMP 05/03/2023 BMI 19.03 kg/(m^2). GENERAL: pleasant, female in no apparent distress HEENT: Normocephalic, atraumatic, mucus membranes moist, and no lesions NECK: Supple, full range of motion, no adenopathy, and thyroid normal DERMATOLOGY: Normal, without lesions, non-icteric, and non-hirsute BREAST: soft, non-tender, symmetric, no dominant mass, normal nipple-areolar complex, no lymphadenopathy, and no nipple discharge CHEST: Clear to auscultation, Normal inspiratory effort, and Regular rate and rhythm ABDOMEN: soft, non-tender, and no masses PELVIC: external genitalia normal, normal Bartholin's glands, urethra, Raynesford's glands, no vulvar lesions, no cervical lesions, good vaginal support, physiologic discharge present, normal appearing perineal body and perianal region BIMANUAL: uterus normal size, shape and consistency, no adnexal masses, and non-tender RECTOVAGINAL: deferred. NEURO: alert and oriented x3,exam grossly non-focal EXTREMITIES: normal ASSESSMENT/PLAN: 1. Encounter for gynecological examination (general) (routine) with abnormal findings - ICD9: V72.31, ICD10: Z01.411 (primary diagnosis) - Completed pelvic and breast exam - Encouraged monthly BSE - Follow up for annual exam in one year. - PAP TEST 2. Screening for cervical cancer - ICD9: V76.2, ICD10: Z12.4 - Completed pelvic and breast exam - Encouraged monthly BSE - Follow up for annual exam in one year. - PAP TEST 3. Encounter for screening for human papillomavirus (HPV) - ICD9: V73.81, ICD10: Z11.51 - PAP TEST 4. Screen for STD (sexually transmitted disease) - ICD9: V74.5, ICD10: Z11.3 5. Menorrhagia with regular cycle - ICD9: 626.2, ICD10: N92.0 - TSH BLD - PROLACTIN BLD - US FEMALE PELVIS TRANSVAG - CBC + DIFF 6. Dysmenorrhea - ICD9: 625.3, ICD10: N94.6 - TSH BLD - PROLACTIN BLD - US FEMALE PELVIS TRANSVAG - CBC + DIFF 7. PMS (premenstrual syndrome) - ICD9: 625.4, ICD10: N94.3 - TSH BLD - PROLACTIN BLD - US FEMALE PELVIS TRANSVAG - CBC + DIFF 1) Health maintenance: Pap done with reflex HPV. Nutrition, exercise and routine health maintenance exams reviewed. Calcium/Vitamin D supplementation information provided. HPV vaccine: completed series 2) Contraception: Reviewed different control options, will decide after results. 3) STD screening: Declined STD check. 4) Follow up one year or sooner as needed Clotilde Mendoza APRN.CNM documented in this encounter [facility] 03-10-2023 Miscellaneous Notes Phone call placed patient advised (see prior provider encounter) Patient verbalized understanding, agreed with plan of care. Elizabeth Cano LPN Your COVID-19 test was positive. Continue supportive therapies as discussed. Follow CDC return to work and quarantining guidelines. Be seen in ED for any new worsening or symptoms lasting longer than anticipated. Hira Villalobos APRN.CNP documented in this encounter [facility] 03-09-2023 Note HNO ID: [id number] Author: Hira Villalobos APRN.CNP Service: ? Author Type: Nurse Practitioner Type: Progress Notes Filed: 03/09/2023 9:21 AM Note Text: Subjective HPI Nontoxic-appearing female presents to urgent care with chief complaint of fever and cough. Duration of symptoms 1 day Associated symptoms with today's chief complaint are on and off headache, muscle aches, fatigue, nonproductive cough, loose stools, and fever. Patient stated symptoms started abruptly. Patient states they have used [id number] medication with some success. Patient states they were in contact with individuals who were diagnosed with COVID-19. Has had COVID-19 twice in the past. Is not vaccinated. Patient denies any pain at this time. Patient denies any visual changes, visual disturbance, shortness of breath, rash, exercise intolerance, pleuritic pain, productive cough, abdominal pain, nausea, vomiting, chest pain, or change in bowel or bladder habits. Denies chance of . BP 102/60 Pulse 81 Temp 37.6 ?C (99.6 ?F) (Tympanic) Resp 18 Wt 45.6 kg (100 lb 9.6 oz) LMP 05/23/2020 SpO2 97% BMI 17.82 kg/m? .Patient presents with: Fever: Fever, ST, bodyaches and SOB x 1 day PAST MEDICAL HISTORY Diagnosis Date NEGATIVE MEDICAL HISTORY PAST SURGICAL HISTORY Procedure Laterality Date NONE ALLERGIES Patient has no known allergies. MEDICATIONS No prescriptions on file. 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 HENT: Positive for congestion and sore throat. Negative for ear discharge, ear pain and sinus pain. Eyes: Negative for blurred vision, pain, discharge and redness. Respiratory: Positive for cough. Negative for hemoptysis, sputum production, shortness of breath, wheezing and stridor. Cardiovascular: Negative for chest pain. Gastrointestinal: Positive for diarrhea. Negative for abdominal pain, nausea and vomiting. Musculoskeletal: Positive for myalgias. Skin: Negative for itching and rash. Neurological: Positive for headaches. Negative for dizziness. Objective Physical Exam Constitutional: General: She is not in acute distress. Appearance: She is not toxic-appearing. HENT: Head: Normocephalic. Nose: Congestion present. Mouth/Throat: Mouth: Mucous membranes are moist. Pharynx: Oropharynx is clear. No oropharyngeal exudate or posterior oropharyngeal erythema. Eyes: Pupils: Pupils are equal, round, and reactive to light. Cardiovascular: Rate and Rhythm: Normal rate. Pulmonary: Effort: Pulmonary effort is normal. No respiratory distress. Breath sounds: No stridor. No wheezing, rhonchi or rales. Abdominal: Tenderness: There is no abdominal tenderness. There is no guarding or rebound. Musculoskeletal: Cervical back: Normal range of motion. Lymphadenopathy: Cervical: No cervical adenopathy. Skin: General: Skin is warm and dry. Neurological: General: No focal deficit present. Mental Status: She is alert. ASSESSMENT/PLAN: 1. Suspected COVID-19 virus infection - ICD9: V01.79, ICD10: Z20.822 - COVID WITH FLUA+B, ROUTINE Diagnosed with suspected COVID-19. Patient is nontoxic-appearing. Test for COVID-19 at today's visit. We discussed COVID-19 return to work guidelines. We discussed treatment options for COVID-19. Red flags prompt reevaluation discussed. Patient was educated on supportive therapies. Patient will follow up with primary care provider as needed. Patient was instructed to immediately proceed to emergency room for any new, worsening, or symptoms lasting longer than anticipated. The patient's clinical presentation is otherwise unremarkable at this time. Based on exam and clinical finding, the patient is stable for discharge. Plan of care was discussed with patient. Patient verbalizes understanding and agrees to plan of care. This note was generated using [employer] (formerly [employer]) software. It may contain errors in wording, punctuation, or spelling. Hira Villalobos APRN.AMISHA [facility] 03-09-2023 Note HNO ID: [id number] Author: Hira Villalobos APRN.AMISHA Service: ? Author Type: Nurse Practitioner Type: Progress Notes Filed: 03/09/2023 9:21 AM Note Text: Subjective HPI ROS Objective Physical Exam [facility] 09-07-2022 Miscellaneous Notes Patient given results and verbalized understanding of instructions given. Holly Deanna Please let patient know negative for COVID, flu, RSV. documented in this encounter [facility] 09-07-2022 Note HNO ID: [id number] Author: Max Wise MD Service: ? Author Type: Physician Type: Progress Notes Filed: 09/07/2022 9:14 AM Note Text: Patient presents with: Head Congestion: drainage, sore throat x 4 weeks HPI: Feeling sick for 4 weeks. She improved for a couple days then got worse the last 5 days. Positive symptoms: Sore throat, Sinus pressure (radiates from cheeks into teeth), Nasal Congestion, Rhinorrhea, Post nasal drainage, Fever, Body Aches, Malaise, Headache, little cough, intermittent earache Negative symptoms: Shortness of breath, Nausea, Vomiting, Diarrhea, OTC: Cold and sinus Medicine, excedrin PAST MEDICAL HISTORY Diagnosis Date NEGATIVE MEDICAL HISTORY MEDICATIONS: No current outpatient medications on file. No current facility-administered medications for this visit. ALLERGIES: ALLERGIES No Known Allergies VITALS: BP 102/60 Pulse 98 Temp 37.1 ?C (98.7 ?F) Resp 16 Wt 48.5 kg (107 lb) LMP 05/23/2020 SpO2 98% BMI 18.95 kg/m? PHYSICAL EXAM: GEN: mildly ill appearing HEENT: PERRL, EOMI, conjunctiva clear Ears: canals clear. RTM without erythema, bulge, or effusion. LTM with effusion and mild erythema. Sinuses: non-tender frontal sinus, non-tender maxillary sinuses Throat: moist mucous membranes, mild erythema, no exudate Neck: supple, no thyromegaly, no lymphadenopathy HEART: regular rate and rhythm, no murmurs LUNGS: clear to auscultation, no wheezes or crackles, no increased WOB ASSESSMENT/PLAN: 1. Acute non-recurrent sinusitis, unspecified location - ICD9: 461.9, ICD10: J01.90 (primary diagnosis) 2. Acute otitis media, left - ICD9: 382.9, ICD10: H66.92 -Probable secondary bacterial sinusitis, differential includes COVID-19/flu the last 5 days. - Discussed supportive care treatment with home isolation, rest, cold AND sinus medicine, and analgesia. - COVID WITH FLUA+B, ROUTINE - AMOXICILLIN 875 MG-POTASSIUM CLAVULANATE 125 MG TABLET Max Wise MD [facility] 09-07-2022 History of Presen t illness Narrative Patient presents with: Head Congestion: drainage, sore throat x 4 weeks HPI: Feeling sick for 4 weeks. She improved for a couple days then got worse the last 5 days. Positive symptoms: Sore throat, Sinus pressure (radiates from cheeks into teeth), Nasal Congestion, Rhinorrhea, Post nasal drainage, Fever, Body Aches, Malaise, Headache, little cough, intermittent earache Negative symptoms: Shortness of breath, Nausea, Vomiting, Diarrhea, OTC: Cold and sinus Medicine, excedrin PAST MEDICAL HISTORY Diagnosis Date NEGATIVE MEDICAL HISTORY MEDICATIONS: No current outpatient medications on file. No current facility-administered medications for this visit. ALLERGIES: ALLERGIES No Known Allergies VITALS: BP 102/60 Pulse 98 Temp 37.1 C (98.7 F) Resp 16 Wt 48.5 kg (107 lb) LMP 05/23/2020 SpO2 98% BMI 18.95 kg/m PHYSICAL EXAM: GEN: mildly ill appearing HEENT: PERRL, EOMI, conjunctiva clear Ears: canals clear. RTM without erythema, bulge, or effusion. LTM with effusion and mild erythema. Sinuses: non-tender frontal sinus, non-tender maxillary sinuses Throat: moist mucous membranes, mild erythema, no exudate Neck: supple, no thyromegaly, no lymphadenopathy HEART: regular rate and rhythm, no murmurs LUNGS: clear to auscultation, no wheezes or crackles, no increased WOB ASSESSMENT/PLAN: 1. Acute non-recurrent sinusitis, unspecified location - ICD9: 461.9, ICD10: J01.90 (primary diagnosis) 2. Acute otitis media, left - ICD9: 382.9, ICD10: H66.92 -Probable secondary bacterial sinusitis, differential includes COVID-19/flu the last 5 days. - Discussed supportive care treatment with home isolation, rest, cold & sinus medicine, and analgesia. 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 Clarita Singh DO documented as of this encounter (statuses as of 06/11/2023) [facility] Acute non-recurrent sinusitis, unspecified location- Primary Acute otitis media, left Unspecified otitis media [facility] Encounter for gynecological examination (general) (routine) with abnormal findings- Primary Screening for cervical cancer Screening for malignant neoplasm of the cervix Encounter for screening for human papillomavirus (HPV) Special screening examination for human papillomavirus (HPV) Screen for STD (sexually transmitted disease) Screening examination for venereal disease Menorrhagia with regular cycle Excessive or frequent menstruation Dysmenorrhea PMS (premenstrual syndrome) Premenstrual tension syndromes Vaginal discharge Leukorrhea, not specified as infective [facility] Diagnosis Menorrhagia with regular cycle Excessive or frequent menstruation Dysmenorrhea PMS (premenstrual syndrome) Premenstrual tension syndromes documented in this encounter [facility] for referral (narrative)* Diagnostic Procedure Only (Routine) - Authorized Specialty Diagnoses / Procedures Referred By Nina fernandez Referred To Contact [facility] Diagnoses Menorrhagia with regular cycle Dysmenorrhea PMS (premenstrual syndrome) Procedures US FEMALE PELVIS TRANSVAG US TRANSVAGINAL Clotilde Mendoza APRN.CNM [address] [place] [address] [place] [address] Referral ID Status Reason Start Date Expiration Date Visits Requested Visits Authorized [id number] Authorized Auto-Generat ed Referral 3 06/29/2024 1 1 [facility] Diagnostic Procedure Only (Routine) - Closed Specialty Diagnoses / Procedures Referred By Nina fernandez Referred To Contact [facility] Diagnoses Menorrhagia with regular cycle Dysmenorrhea PMS (premenstrual syndrome) Procedures US FEMALE PELVIS TRANSVAG US TRANSVAGINAL Clotilde Mendoza APRN.CNM [address] [place] [address] [place] [address] Referral ID Status Reason Start Date Expiration Date V isits Requested Visits Authorized [id number] Closed Auto-Generate d Referral 05/31/2023 06/29/2024 1 1 [facility] Health Concerns Infection Onset Date Last Indicated Resolved Time COVID-19 Rule-Out 09/07/2022 09/07/2022 Infection Onset Date Last Indicated Resolved Time COVID-19 Rule-Out 09/07/2022 09/07/2022 09/07/2022 6:46 PM EST Infection Onset Date Last Indicated Resolved Time COVID-19 Confirmed 03/09/2023 03/09/2023 Summary Purpose Family History No Family History Records Found Advance Directives No Advanced Directives Records Found Additional Source Comments Source Comments (unrecognize d section and content) In the event this informatio n is protected by the Federal Confidentiality of Alcohol and Drug Abuse Patient Records regulations: The Federal rules restrict any use of the information to criminally investigate or prosecute any alcohol or drug abuse patient.[facility] event this information is protected by the Federal Confidentiality of Alcohol and Drug Abuse Patient Records regulations: The Federal rules restrict any use of the information to criminally investigate or prosecute any alcohol or drug abuse patient.[facility] the event this information is protected by the Federal Confidentiality of Alcohol and Drug Abuse Patient Records regulations: The Federal rules restrict any use of the information to criminally investigate or prosecute any alcohol or drug abuse patient.[facility] the event this information is protected by the Federal Confidentiality of Alcohol and Drug Abuse Patient Records regulations: The Federal rules restrict any use of the information to criminally investigate or prosecute any alcohol or drug abuse patient.[facility] the event this information is protected by the Federal Confidentiality of Alcohol and Drug Abuse Patient Records regulations: The Federal rules restrict any use of the information to criminally investigate or prosecute any alcohol or drug abuse patient.[facility] Reason for Visit (unrecogniz ed section and content) Reason Comments Results Reason Comments Yearly Exam Reason Comments Radiology US Specialty Diagnoses / Procedures Referred By Nina t Referred To Contact [facility] Diagnoses Menorrhagia with regular cycle Dysmenorrhea PMS (premenstrual syndrome) Procedures US FEMALE PELVIS TRANSVAG US TRANSVAGINAL Clotilde Mendoza APRN.CN [address] [place] [address] [place] [address] Referral ID Status Reason Start Date Expiration Date V isits Requested Visits Authorized [id number] Closed Auto-Generate d Referral 05/31/2023 06/29/2024 1 1 INFORMATION SOURCE (unrecogn ized section and content) FOR RECORDS PERTAINING TO PATIENTS WHO ARE OR HAVE BEEN ENROLLED IN A CHEMICAL DEPENDENCY/SUBSTANCEABUSE PROGRAM, SOME INFORMATION MAY BE OMITTED. This clinical summary was aggregated from multiple sources. Caution should be exercised in using it in the provision of clinical care. This summary normalizes information from multiple sources, and as a consequence, information in this document may materially change the coding, format and clinical context of patient data. In addition, data may be omitted in some cases. CLINICAL DECISIONS SHOULD BE BASED ON THE PRIMARY CLINICAL RECORDS. [employer] provides no warranty or guarantee of the accuracy or completeness of information in this document.
[2023-09-16 11:27] LABS: Bacteria 0 SEEN /hpf (None Seen); Mucous, Urine 0 SEEN /hpf (<or=2+); Red Blood Cells-Urine 0 SEEN /hpf (0-5); Squamous Epithelial Cells - UA 0 SEEN /hpf (5-10); White Blood Cells 0 SEEN /hpf (0-5)
[2023-09-16 12:13] LABS: Color, Urine Yellow (Yellow); Glucose, Dipstick Normal (Normal); Ketone-Dipstick 5 mg/dl (Negative); Leukocyte Esterase-Dipstick Negative /ul (Negative); Nitrite-Dipstick Negative (Negative); Occult Blood-Urine 50 /ul (Negative); Protein-Dipstick Negative (Negative); Urine Bilirubin Dipstick Negative (Negative); Urine Clarity Clear (Clear); Urine Urobilinogen Normal (Normal)
[2023-09-16 12:20] LABS: hCG Titer Quant., Serum 6171 mIU/mL (1-3)
[2023-09-16] MEDS: Electrolyte Solution/Peg's 4000 ML 1000 ML PO (13:43)
== END 2023-09-16 13:45 | disposition home or self-care (01) ==
PROVIDERS: Emergency Provider Emergency Medicine; Visit Provider Emergency Medicine
DX: O20.0 Threatened abortion (principal); Z3A.01 Less than 8 weeks gestation of pregnancy; Z87.891 Personal history of nicotine dependence
CPT/HCPCS: 76817; 81001; 84702; 99283; A4216

== ENCOUNTER 2023-09-27 11:27 | Outpatient (CLI) | payer OTHER, MEDICAID, SELFPAY ==
[2023-09-27 11:42] VITALS: BP 101/61; PULSE 53; RESP 16; TEMP 36.8; O2SAT 99; BMI 19.1
[2023-09-27] MEDS: Lactated Ringers 1,000 ML 999 ML IV (11:58)
[2023-09-27] MEDS: Ondansetron 4 MG/2 ML Vial IV (12:17)
[2023-09-27] MEDS: 0.9% NaCl Peripheral Flush Adult/Peds IV (12:27)
[2023-09-27 13:13] VITALS: BP 110/61; PULSE 53; RESP 16
== END 2023-09-27 11:28 | disposition home or self-care (01) ==
LOC: MEDOUTP 11:28
PROVIDERS: Referring Provider Advanced Practice Midwife; Visit Provider Advanced Practice Midwife
DX: R11.10 Vomiting, unspecified (principal)
CPT/HCPCS: 96374; 96361; J7120; A4216; J2405